=== PATIENT | female | born 1965 | race Caucasian/White ===

== ENCOUNTER 2019-07-06 11:33 | Day surgery (SDC) | payer OTHER ==
[2019-07-06] MEDS ORDERED: PROPOFOL 20 ML (13:49)
[2019-07-06] MEDS ORDERED: FENTAnyl 50 MCG/ML VIAL (13:49)
== END 2019-07-06 16:01 | disposition home or self-care (01) ==
LOC: GIL 11:33
DX: D50.9 Iron deficiency anemia, unspecified (principal); K64.8 Other hemorrhoids; D12.5 Benign neoplasm of sigmoid colon; K21.0 Gastro-esophageal reflux disease with esophagitis; I10 Essential (primary) hypertension; E11.9 Type 2 diabetes mellitus without complications; Z79.84 Long term (current) use of oral hypoglycemic drugs
CPT/HCPCS: 43239; 82962; 88305; 88312